=== PATIENT | female | born 1995 | race Caucasian/White ===

== ENCOUNTER 2017-04-10 08:37 | Emergency (ER) | payer BC ==
[~2017-04-10] VITALS: Ht 152.4 cm; Wt 80.6 kg
[~2017-04-10 08:37] MED LIST: AMOXICILLIN500 MG PO; ENDOCET 5-3251 EACH PO; FIORICET 50-301 EACH PO; HYCODAN SYRUP480 ML PO; IBUPROFEN800 MG PO; KEFLEX500 MG PO; MACROBID100 MG PO; MOTRIN800 MG PO; NAPROSYN500 MG PO; NITROFURANTOIN100 M3 PO; NOHOMEMEDS; NYQUIL D COLD295 ML PO; PREDNISONE20 MG PO; PRENATAL TABLE1 EAC3 PO; PROMETHAZINE HC25 M1 PO; PROVENTIL,2.5 MG/3 M IH; REGLAN10 MG PO; RIZATRIPTAN10 M1 PO; SINGULAIR10 MG PO; TOPIRAMATE100 MG PO; TYLENOL EXTRA500 MG PO; VENTOLIN HFA18 GM IH; ZITHROMAX Z-PA250 MG PO; ZOFRAN ODT4 MG PO; ZOFRAN ODT8 MG PO; ZOFRAN4 MG PO; [UNRECOGNIZED DRUG - OTHER] PO
[2017-04-10] MEDS ORDERED: JUNEL FE 1/21 TABLET PO (09:31)
[2017-04-10] MEDS ORDERED: FIORICET WI1 CAPSULE PO (10:56)
[2017-04-10 11:22] VITALS: BP 102/70
== END 2017-04-10 11:24 | disposition home or self-care (01) ==
LOC: EME 08:37
DX: G43.909 Migraine, unspecified, not intractable, without status migrainosus (principal)
CPT/HCPCS: 99281; 99284; J1885; J2765; J7030

== ENCOUNTER 2017-12-01 07:03 | Emergency (ER) | payer BC ==
[~2017-12-01] VITALS: Ht 152.4 cm; Wt 80.8 kg
[~2017-12-01 07:03] MED LIST changes: +FIORICET WI1 CAPSULE PO; +JUNEL FE 1/21 TABLET PO
[2017-12-01 07:42] LABS: BASOPHIL (%) 0.2 % (0-1); EOSINOPHIL (%) 2.2 % (0-5); EOSINOPHIL COUNT 0.3 K/uL (0-0.3); HEMATOCRIT 40.9 % (36.0-46.0); HEMOGLOBIN 14.3 G/DL (11.9-15.5); IMMATURE GRANULOCYTE (%) 0.4 % (0.0-0.7); LYMPHOCYTE COUNT 1.9 K/uL (1.0-2.8); MCH 29.4 PG (29.0-34.0); MCV 84.2 FL (83-99); MONOCYTE (%) 5.4 % (3-12); MONOCYTE COUNT 0.7 K/uL (0-0.8); NEUTROPHIL (%) 76.8 % (45-76); NEUTROPHIL COUNT 9.6 K/uL (1.8-6.4); PLATELET COUNT 162 K/uL (156-360); RBC DIS.WIDTH-CV 12.8 % (11.8-14.6); RBC DIS.WIDTH-SD 39.5 % (39-53); RED BLOOD COUNT 4.86 M/uL (3.80-5.20); WHITE BLOOD COUNT 12.5 K/uL (4.1-10.2)
[2017-12-01 07:59] LABS: APPEARANCE CLEAR ((CLEAR)); BILIRUBIN NEGATIVE; BLOOD NEGATIVE; COLOR YELLOW ((YELLOW)); GLUCOSE (STRIP) NEGATIVE; KETONES NEGATIVE; LEUKOCYTES MODERATE; NITRITE NEGATIVE; PROTEIN (STRIP) NEGATIVE; SPECIFIC GRAVITY 1.019 (1.000-1.030); UROBILINOGEN 0.2 MG/DL (0.2-1.0)
[2017-12-01 08:11] LABS: BACTERIA RARE /HPF; EPITHELIAL CELLS 1+ /HPF; MUCUS TRACE /LPF
[2017-12-01 08:26] LABS: CHLORIDE 107 MEQ/L (99-109); SODIUM 137 MEQ/L (136-147)
[2017-12-01 08:29] LABS: QUANTITATIVE HCG < 4.0 MIU/ML
[2017-12-01 08:32] LABS: CREATININE 0.7 MG/DL (0.6-1.3); GFR ESTIMATE (CALCULATED) > 59 mL/min/; GLUCOSE 116 mg/dL (70-99); UREA NITROGEN (BUN) 9 mg/dL (9-23)
[2017-12-01] MEDS ORDERED: CIPRO500 MG PO (09:13)
[2017-12-01 10:06] VITALS: BP 131/62
== END 2017-12-01 09:28 | disposition home or self-care (01) ==
LOC: EME 07:03
PROVIDERS: Emergency Medicine
DX: N39.0 Urinary tract infection, site not specified (principal); J45.909 Unspecified asthma, uncomplicated; Z87.42 Personal history of other diseases of the female genital tract; Z88.8 Allergy status to other drugs, medicaments and biological substances
CPT/HCPCS: 76856; 80048; 81003; 84702; 85025; 99281; 99285